=== PATIENT | female | born 1965 | race Caucasian/White ===

== ENCOUNTER 2018-10-05 10:47 | Emergency (ER) | payer BC, OTHER, SELFPAY ==
[2018-10-05 11:04] VITALS: BP 121/74; PULSE 69; RESP 18; TEMP 36.8; O2SAT 97
--- NOTE | 2018-10-05 12:32 | W.ED.GENAD ---
Discharge Plan Disposition Patient Disposition: HOME Condition: Stable Discharge Details Chief Complaint: GenMedical Clinical Impression: URI (upper respiratory infection), Laryngitis Primary Care Provider: Christin Jordan ED Provider: Jade Cain Home Meds and New Rx's Prescriptions: Continue coenzyme T24-[id number] E [Co Q-10 (with Vit E)] 1 EACH capsule 2 ea PO DAILY RF: 0 inulin [Fiber Gummies] 2.5 GM tablet,chewable 2 tab PO DAILY RF: 0 vitamin E acetate 200 UNIT capsule 200 unit PO DAILY RF: 0 black cohosh 540 MG capsule 540 mg PO DAILY RF: 0 niacinamide [Niacin (niacinamide)] 500 MG tablet 1 cap PO DAILY RF: 0 Multivitamin Gummy 1 tab.chew PO RF: 0 Turmeric Root Extract [Turmeric] 538 MG capsule 500 mg PO DAILY RF: 0 Discharge Instructions Instructions: Laryngitis (ED), Upper Respiratory Infection (ED) Additional Instructions: Drink plenty of fluids and get plenty of rest. Rest your voice is much as possible. Take glsu-rld-bstqgdg cough and cold medicine, Tylenol, Motrin as needed and directed. You can also drink hot tea with lemon, gargle with salt water, Chloraseptic spray or Sucrets. Follow-up with the primary care doctor in 1 week for reevaluation. Return immediately to the emergency department any worsening or new concerning symptoms. Discharge Data Discharge Date/Time-TO BE ENTERED AT DEPARTURE: 10/05/18 12:56 Discharge Physician: Jade Cain Medical Decision Making 53-year-old female who presents with URI symptoms of runny nose, cough, sore throat the past 9 days, lost voice days ago. No fever, drinking and eating well, no chest pain or shortness of breath. Vitals within normal limits. Patient appears nontoxic and in no acute distress. Airway intact, patient is speaking in full sentences but has faint hoarse voice consistent with laryngitis. Normal ENT exam. Lungs clear to auscultation. No lymphadenopathy. No submandibular swelling, no drooling. Discussed with patient that her symptoms, especially laryngitis are usually viral in nature and as she has no fever, eating and drinking well, and appears nontoxic, recommendations would be for fluids, resting her voice, plenty of rest, and hjzm-zcg-somfxcd cough and cold medicine in addition to Sucrets, Chloraseptic spray, hot water with lemon. Patient instructed to follow with primary care doctor in 1 week and return here with any worsening symptoms. HPI General Mode of arrival: ambulatory. Date/Time Provider Initiated Documentation: 10/05/18 11:45. Limitations to Documentation: no limitations. Information obtained by: patient. HPI Narrative: Patient is a 53-year-old female who presents to the ED with a complaint of runny nose, cough and sore throat for the past 9 days, and no voice for the past 2 days. Patient states her symptoms started with a runny nose and cough then progressed to sore throat. Patient has been taking ibuprofen for pain. She denies any fever, pain, shortness of breath or neck pain. Past medical history: None Surgical history: Tonsillectomy and adenoidectomy, right cyst/salpingectomy Surgical history: Occasional alcohol, denies tobacco or drugs Medications: None Allergies: Topamax, Lamisil PCP: Dr. Jordan Related Data Home Medications Medication Instructions Recorded Confirmed coenzyme W99-vcgbksn E [Co Q-10 2 ea PO DAILY 05/27/13 (with Vit E)] inulin [Fiber Gummies] 2 tab PO DAILY tab.chew 08/13/13 vitamin E acetate 200 unit PO DAILY 08/13/13 black cohosh 540 mg PO DAILY 08/19/14 Multivitamin Gummy 1 tab.chew PO 10/17/17 Turmeric Root Extract [Turmeric] 500 mg PO DAILY 10/17/17 niacinamide [Niacin (niacinamide)] 1 cap PO DAILY 10/17/17 Allergies Allergy/AdvReac Type Severity Reaction Status Date / Time terbinafine AdvReac Intermediate EXTREME Unverified 12/26/17 15:28 EXHAUSTION topiramate AdvReac Intermediate CONFUSION/D Unverified 12/26/17 15:28 EPRESSION General Stated Complaint: GenMedical JANI: 4 Review of Systems Review of Systems All systems reviewed & are unremarkable except as noted in HPI and below Constitutional Reports as per HPI, Denies chills and Denies fever(s) Eyes Denies blurry vision ENT Denies dizziness, Reports sore throat and Denies throat swelling Cardiovascular Denies chest pain and Denies dyspnea Respiratory Reports cough and Denies dyspnea Gastrointestinal Denies abdominal pain, Denies diarrhea and Denies vomiting Genitourinary Denies hematuria and Denies dysuria Musculoskeletal Denies back pain and Denies numbness Integumentary/Breasts Denies lesions and Denies rash Neurologic Denies dizziness and Denies numbness Allergic/Immunologic Denies throat swelling [facility] Family History Mother Essential hypertension Heart disease Hyperlipidemia Father Personal history of malignant neoplasm Myocardial infarction Cerebrovascular accident Sister No problems noted. Brother Hyperlipidemia Cerebrovascular accident Parkinsons Brother No problems noted. Brother Diabetes Essential hypertension Grandfather No problems noted. Grandfather Personal history of malignant neoplasm Grandmother Diabetes Heart disease Hyperlipidemia Grandmother Hyperlipidemia Social History Smoking/Tobacco Use Status: Never Surgical History Bilateral salpingectomy with oophorectomy Colonoscopy - MAC (07/19/13) Tonsillectomy and adenoidectomy Exam Const General: cooperative and healthy appearing Orientation: alert and awake HENAR Head: normal to inspection Ears: hearing grossly normal bilaterally, external ears normal and TM's normal bilaterally General nose exam: external nose normal Face and sinus: normal facial exam and sinuses nontender Mouth: oral mucosae normal Teeth and gingiva: dentition normal Throat: posterior oropharynx normal Eyes General: appearance normal, both eyes and all related structures Eyelids: eyelids normal Pupils: PERRL EOM: EOM intact bilaterally Neck Neck: normal visual inspection Lymphatic: no lymphadenopathy noted Chest Chest: normal inspection of the chest Resp Effort & Inspection: normal respiratory effort and able to speak in complete sentences Auscultation: clear to auscultation bilaterally Cardio Rate: regular rate Rhythm: regular rhythm GI Inspection: normal to inspection Palpation: soft, not firm, no guarding, no hepatosplenomegaly, no masses and nontender Auscultation: normal bowel sounds Skin General skin exam: no rashes or lesions noted Neuro General: alert and awake Cognition: normal cognition Speech: speech normal Gait: normal gait Motor: muscle tone normal throughout Sensory Exam: no sensory deficits noted Extrem General: normal to inspection, full ROM, normal capillary refill and no edema Psych Appearance: grossly normal Mental Status: mental status grossly normal Speech and Movement: speech and movement normal Affect: normal affect Thought Process: normal Course Vital Signs Temperature 98.2 F 10/05/18 11:04 Pulse 69 10/05/18 11:04 Respiratory Rate 18 10/05/18 11:04 Blood Pressure 121/74 10/05/18 11:04 Pulse Oximetry 97 10/05/18 11:04 Temperature 98.2 F 10/05/18 11:04 Temperature Source Temporal Artery Scan 10/05/18 11:04 Pulse 69 10/05/18 11:04 Respiratory Rate 18 10/05/18 11:04 Blood Pressure 121/74 10/05/18 11:04 Blood Pressure Position Sitting 10/05/18 11:04 Pulse Oximetry 97 10/05/18 11:04 Oxygen Delivery Method Room Air 10/05/18 11:04 Oxygen Flow Rate 0 10/05/18 11:04 Pain Level 0 10/05/18 11:04
--- NOTE | 2018-10-05 12:35 | ED.GENADUL_ITS ---
Discharge Plan Disposition Patient Disposition: HOME Condition: Stable Discharge Details Chief Complaint: GenMedical Clinical Impression: URI (upper respiratory infection), Laryngitis Primary Care Provider: Christin Jordan ED Provider: Jade Cain Home Meds and New Rx's Prescriptions: Continue coenzyme I97-yeohekf E [Co Q-10 (with Vit E)] 1 EACH capsule 2 ea PO DAILY RF: 0 inulin [Fiber Gummies] 2.5 GM tablet,chewable 2 tab PO DAILY RF: 0 vitamin E acetate 200 UNIT capsule 200 unit PO DAILY RF: 0 black cohosh 540 MG capsule 540 mg PO DAILY RF: 0 niacinamide [Niacin (niacinamide)] 500 MG tablet 1 cap PO DAILY RF: 0 Multivitamin Gummy 1 tab.chew PO RF: 0 Turmeric Root Extract [Turmeric] 538 MG capsule 500 mg PO DAILY RF: 0 Discharge Instructions Instructions: Laryngitis (ED), Upper Respiratory Infection (ED) Additional Instructions: Drink plenty of fluids and get plenty of rest. Rest your voice is much as possible. Take mnum-jtn-hsabpst cough and cold medicine, Tylenol, Motrin as needed and directed. You can also drink hot tea with lemon, gargle with salt water, Chloraseptic spray or Sucrets. Follow-up with the primary care doctor in 1 week for reevaluation. Return immediately to the emergency department any worsening or new concerning symptoms. Discharge Data Discharge Date/Time-TO BE ENTERED AT DEPARTURE: 10/05/18 12:56 Discharge Physician: Jade Cain Medical Decision Making 53-year-old female who presents with URI symptoms of runny nose, cough, sore throat the past 9 days, lost voice days ago. No fever, drinking and eating well , no chest pain or shortness of breath. Vitals within normal limits. Patient appears nontoxic and in no acute distress. Airway intact, patient is speaking in full sentences but has faint hoarse voice consistent with laryngitis. Normal ENT exam. Lungs clear to auscultation. No lymphadenopathy. No submandibular swelling, no drooling. Discussed with patient that her symptoms, especially laryngitis are usually viral in nature and as she has no fever, eating and drinking well, and appears nontoxic, recommendations would be for fluids, resting her voice, plenty of rest, and zidp-wly-byddbkf cough and cold medicine in addition to Sucrets, Chloraseptic spray, hot water with lemon. Patient instructed to follow with primary care doctor in 1 week and return here with any worsening symptoms. HPI General Mode of arrival: ambulatory . Date/Time Provider Initiated Documentation: 10/05/18 11:45 . Limitations to Documentation: no limitations . Information obtained by: patient . HPI Narrative: Patient is a 53-year-old female who presents to the ED with a complaint of runny nose, cough and sore throat for the past 9 days, and no voice for the past 2 days. Patient states her symptoms started with a runny nose and cough then progressed to sore throat. Patient has been taking ibuprofen for pain. She denies any fever, pain, shortness of breath or neck pain. Past medical history: None Surgical history: Tonsillectomy and adenoidectomy, right cyst/salpingectomy Surgical history: Occasional alcohol, denies tobacco or drugs Medications: None Allergies: Topamax, Lamisil PCP: Dr. Jordan Related Data Home Medications Medication Instructions Recorded Confirmed coenzyme D15-cvftsmv E [Co Q-10 2 ea PO DAILY 05/27/13 (with Vit E)] inulin [Fiber Gummies] 2 tab PO DAILY tab.chew 08/13/13 vitamin E acetate 200 unit PO DAILY 08/13/13 black cohosh 540 mg PO DAILY 08/19/14 Multivitamin Gummy 1 tab.chew PO 10/17/17 Turmeric Root Extract [Turmeric] 500 mg PO DAILY 10/17/17 niacinamide [Niacin (niacinamide)] 1 cap PO DAILY 10/17/17 Allergies Allergy/AdvReac Type Severity Reaction Status Date / Time terbinafine AdvReac Intermediate EXTREME Unverified 12/26/17 15:28 EXHAUSTION topiramate AdvReac Intermediate CONFUSION/D Unverified 12/26/17 15:28 EPRESSION General Stated Complaint: GenMedical JANI: 4 Review of Systems Review of Systems All systems reviewed & are unremarkable except as noted in HPI and below Constitutional Reports as per HPI, Denies chills and Denies fever(s) Eyes Denies blurry vision ENT Denies dizziness, Reports sore throat and Denies throat swelling Cardiovascular Denies chest pain and Denies dyspnea Respiratory Reports cough and Denies dyspnea Gastrointestinal Denies abdominal pain, Denies diarrhea and Denies vomiting Genitourinary Denies hematuria and Denies dysuria Musculoskeletal Denies back pain and Denies numbness Integumentary/Breasts Denies lesions and Denies rash Neurologic Denies dizziness and Denies numbness Allergic/Immunologic Denies throat swelling [facility] Family History Mother Essential hypertension Heart disease Hyperlipidemia Father Personal history of malignant neoplasm Myocardial infarction Cerebrovascular accident Sister No problems noted. Brother Hyperlipidemia Cerebrovascular accident Parkinsons Brother No problems noted. Brother Diabetes Essential hypertension Grandfather No problems noted. Grandfather Personal history of malignant neoplasm Grandmother Diabetes Heart disease Hyperlipidemia Grandmother Hyperlipidemia Social History Smoking/Tobacco Use Status: Never Surgical History Bilateral salpingectomy with oophorectomy Colonoscopy - MAC (07/19/13) Tonsillectomy and adenoidectomy Exam Const General: cooperative and healthy appearing Orientation: alert and awake HENWA Head: normal to inspection Ears: hearing grossly normal bilaterally, external ears normal and TM's normal bilaterally General nose exam: external nose normal Face and sinus: normal facial exam and sinuses nontender Mouth: oral mucosae normal Teeth and gingiva: dentition normal Throat: posterior oropharynx normal Eyes General: appearance normal, both eyes and all related structures Eyelids: eyelids normal Pupils: PERRL EOM: EOM intact bilaterally Neck Neck: normal visual inspection Lymphatic: no lymphadenopathy noted Chest Chest: normal inspection of the chest Resp Effort & Inspection: normal respiratory effort and able to speak in complete sentences Auscultation: clear to auscultation bilaterally Cardio Rate: regular rate Rhythm: regular rhythm GI Inspection: normal to inspection Palpation: soft, not firm, no guarding, no hepatosplenomegaly, no masses and nontender Auscultation: normal bowel sounds Skin General skin exam: no rashes or lesions noted Neuro General: alert and awake Cognition: normal cognition Speech: speech normal Gait: normal gait Motor: muscle tone normal throughout Sensory Exam: no sensory deficits noted Extrem General: normal to inspection, full ROM, normal capillary refill and no edema Psych Appearance: grossly normal Mental Status: mental status grossly normal Speech and Movement: speech and movement normal Affect: normal affect Thought Process: normal Course Vital Signs Temperature 98.2 F 10/05/18 11:04 Pulse 69 10/05/18 11:04 Respiratory Rate 18 10/05/18 11:04 Blood Pressure 121/74 10/05/18 11:04 Pulse Oximetry 97 10/05/18 11:04 Temperature 98.2 F 10/05/18 11:04 Temperature Source Temporal Artery Scan 10/05/18 11:04 Pulse 69 10/05/18 11:04 Respiratory Rate 18 10/05/18 11:04 Blood Pressure 121/74 10/05/18 11:04 Blood Pressure Position Sitting 10/05/18 11:04 Pulse Oximetry 97 10/05/18 11:04 Oxygen Delivery Method Room Air 10/05/18 11:04 Oxygen Flow Rate 0 10/05/18 11:04 Pain Level 0 10/05/18 11:04
== END 2018-10-05 12:56 | disposition home or self-care (01) ==
LOC: ER 12:55
PROVIDERS: Emergency Provider Physician Assistant; PCP Family Medicine
DX: J06.9 Acute upper respiratory infection, unspecified (principal); J04.0 Acute laryngitis
CPT/HCPCS: 99282

== ENCOUNTER 2018-11-05 11:15 | Outpatient (CLI) | payer BC, OTHER, SELFPAY ==
[2018-11-05 13:38] LABS: ALT 25 U/L (12-78); AST 16 U/L (15-37); Albumin 3.9 g/dL (3.4-5.0); Alkaline Phosphatase 72 U/L (46-116); Anion Gap 8.3 mmol/L (3-11); BUN 16 mg/dL (7-18); Bilirubin, Total 0.3 mg/dL (0.2-1.0); CO2 28.7 mmol/L (21.0-32.0); CREATININE 0.77 mg/dL (0.55-1.02); Calcium 9.5 mg/dL (8.5-10.1); Chloride 104 mmol/L (98-107); Cholesterol 287 mg/dL (50-200); Glucose 99 mg/dL (70-100); HDL Cholesterol 57 mg/dL (40-60); LDL CHOLESTEROL 195 mg/dL (<100); Potassium 4.5 mmol/L (3.5-5.1); Sodium 141 mmol/L (136-145); TSH (W/Ref FT4) 1.54 uIU/mL (0.358-3.74); Total Protein 7.2 g/dL (6.4-8.2); Triglyceride 283 mg/dL (30-150)
== END 2018-11-05 11:35 ==
PROVIDERS: PCP Family Medicine; Visit Provider Family Medicine
DX: Z00.00 Encounter for general adult medical examination without abnormal findings (principal); Z13.220 Encounter for screening for lipoid disorders; Z13.228 Encounter for screening for other metabolic disorders; Z13.29 Encounter for screening for other suspected endocrine disorder
CPT/HCPCS: 36415; 80053; 80061; 83721; 84443

== ENCOUNTER 2018-11-05 12:33 | Outpatient (REF) | payer BC, OTHER, SELFPAY ==
--- NOTE | 2018-11-05 10:30 | PAPFT_PTH ---
PATIENT: Elizabeth Gonzalez LOC: [facility] U#:[id number] AGE/SX: 53/F ROOM: RE11/05/[address]: Christin Jordan MD, DC : 1965 BED: DIS: 11/05/2018 SPEC #: [id number] RECD: 11/07/18 14:42 STATUS: RUI REQ #: [id number] LAURA: 11/05/18 10:[address]: Christin Jordan DEPT: [facility] Cytology RECD BY: Tala Tavares Tissues: 1 - CX/ENDOCX FOR PAP SMEARS Procedures: PAP THIN PREP/UVM Screening HPV DNA PROBE Comments: [id number]
== END 2018-11-05 12:53 ==
LOC: LBN 12:33
PROVIDERS: PCP Family Medicine; Visit Provider Family Medicine
DX: Z12.4 Encounter for screening for malignant neoplasm of cervix (principal); Z11.51 Encounter for screening for human papillomavirus (HPV)
CPT/HCPCS: 88142; 87624

== ENCOUNTER 2018-11-12 00:09 | Outpatient (CLI) | payer BC, OTHER, SELFPAY ==
--- NOTE | 2018-11-12 09:30 | DI.MAMMO_ITS ---
SYMPTOM/DIAGNOSIS: SCREENING, Z12.31 MAMMOGRAMS: Mammograms were interpreted according to the usual protocol including computer analysis with CAD system, tomosynthesis and C view imaging. Comparison is made with exams from [id number]. The breasts are composed of scattered fibroglandular densities. Breast density, Category C. No suspicious masses or suspicious microcalcifications are seen. There has been no significant change. IMPRESSION: Category 1B, negative mammogram. Yearly screening mammography is recommended. [facility] ASSESSMENT OF FINDINGS: Negative. Category 1. Patient will receive a letter notifying them of these results. BI-RADS category B. There are scattered areas of fibroglandular density.
== END 2018-11-12 00:29 ==
PROVIDERS: PCP Family Medicine; Visit Provider Family Medicine
DX: Z12.31 Encounter for screening mammogram for malignant neoplasm of breast (principal)
CPT/HCPCS: 77063; 77067

== ENCOUNTER 2019-11-07 11:40 | Outpatient (REF) | payer BC, OTHER, SELFPAY ==
--- NOTE | 2019-11-07 10:00 | PAPFT_PTH ---
PATIENT: Elizabeth Gonzalez LOC: [facility] U#:[id number] AGE/SX: 54/F ROOM: RE11/07/[address]: Christin Jordan MD, DC : 1965 BED: DIS: 11/07/2019 SPEC #: [id number] RECD: 11/08/19 12:51 STATUS: RUI REQ #: [id number] LAURA: 11/07/19 10:[address]: Christin Jordan DEPT: [facility] Cytology RECD BY: Eileen Solomon Tissues: 1 - CX/ENDOCX FOR PAP SMEARS Procedures: PAP THIN PREP/UVM Screening HPV DNA PROBE Comments: [id number]
== END 2019-11-07 12:00 ==
LOC: LBN 11:40
PROVIDERS: PCP Family Medicine; Visit Provider Family Medicine
DX: Z12.4 Encounter for screening for malignant neoplasm of cervix (principal); Z11.51 Encounter for screening for human papillomavirus (HPV)
CPT/HCPCS: 88142; 87624

== ENCOUNTER 2019-11-26 13:48 | Outpatient (CLI) | payer BC, OTHER, SELFPAY ==
--- NOTE | 2019-12-06 15:47 | DI.MAMMO_ITS ---
EXAM: MG MAMMO SCREENING CLINICAL HISTORY: screening, Z12.39. TECHNIQUE: Full field digital CC and MLO mammographic images were obtained with 3D tomosynthesis and utilizing computer aided detection (CAD). COMPARISON: . 2009 to 2017 FINDINGS: Breast Density - Category B - Scattered areas of fibroglandular density Masses/Architectural Distortion: None seen. Microcalcifications: No suspicious pleomorphic-type calcifications are seen. Skin Thickening/Nipple Retraction: None. Axilla: Unremarkable. IMPRESSION: 1. BI-RADS category 1, negative. No significant interval change with no specific features of maligna ncy noted. 2. Unless there is more urgent need, screening mammography is recommended, as per [employer] guidelines. A negative radiographic report should not delay biopsy if a dominant or clinically suspicious mass is present. Up to ten percent of cancers are not identified on mammography. A negative report may reinforce clinical impression. Adenosis and dense breasts may obscure an underlying neoplasm. False positive reports average 6 to 10%. Patient will receive a letter notifying them of these results.
== END 2019-11-26 14:08 ==
PROVIDERS: PCP Family Medicine; Visit Provider Family Medicine
DX: Z12.31 Encounter for screening mammogram for malignant neoplasm of breast (principal)
CPT/HCPCS: 77063; 77067

== ENCOUNTER 2021-07-06 08:23 | Day surgery (SDC) | payer BC, OTHER, SELFPAY ==
--- NOTE | 2021-07-06 07:31 | PDOC.DSDIS_ITS ---
Discharge Plan Disposition Patient Disposition: HOME Condition: Stable Discharge Details Reason For Visit: Right ECTR Attending Provider: Patrick Putnam Primary Care Provider: Christin Jordan Home Meds and New Rx's Prescriptions: New ibuprofen 600 mg tablet 600 mg PO TID Qty: 30 RF: 0 acetaminophen [Tylenol Extra Strength] 500 mg tablet 500 mg PO Q6H PRNQty: 30 RF: 0 hydrocodone-acetaminophen 5-325 mg tablet 1 tab PO Q6H PRNQty: 3 RF: 0 Continued vitamin B complex tablet 1 tab PO DAILY RF: 0 black cohosh 540 mg capsule 540 mg PO DAILY RF: 0 cholecalciferol (vitamin D3) 25 mcg (1,000 unit) capsule 25 mcg PO DAILY RF: 0 multivit with min-folic acid 150 mcg tablet,chewable 2 tab PO DAILY RF: 0 coenzyme X35-hsoyccd E [Co Q-10 (with Vit E)] 100-5 mg-unit capsule 1 cap PO DAILY RF: 0 vitamin E acetate 200 unit capsule 450 unit PO DAILY RF: 0 Discharge Instructions Stand Alone Forms: [place] Tunnel Release Referrals: Patrick Putnam MD [ [facility]YSICIAN] - Activity:: Activity as Tolerated Remove Dressings/Wound Care:: 72 hours Shower/Bathe:: 72 hours Diet:: As Tolerated Discharge Orders Discharge Orders: Discharge Order (Routine); Ordered 07/06/21 Ordered By: Aisha Mclain DS: Diagnosis Discharge Diagnosis (1) Carpal tunnel syndrome of right wrist: Status: Acute
[2021-07-06 08:37] VITALS: BP 114/66; PULSE 75; RESP 16; TEMP 36.2; O2SAT 99
[2021-07-06] MEDS: Lactated Ringers 1,000 ML 80 ML IV (09:15)
--- NOTE | 2021-07-06 09:15 | W.ANESPRE ---
General Info Date of Service Date Performed: 07/06/21 Height: 5 ft 4 in Weight: 87.09 kg Body Mass Index (BMI): 32.9 Surgical Procedure: Operation Date: 07/06/21 09:40 Proposed Procedures Side Surgeon p (R) ECTR Right Patrick Putnam MD Meds Allergies and Home Medications Allergies Allergy/AdvReac Type Severity Reaction Status Date / Time terbinafine AdvReac Intermediate EXTREME Unverified 07/06/21 08:52 EXHAUSTION topiramate AdvReac Intermediate CONFUSION/D Unverified 07/06/21 08:52 EPRESSION Home Medication Medication Instructions Recorded coenzyme C01-efuliqi E 100 mg-5 1 cap PO DAILY cap 11/05/18 unit capsule vitamin B complex 1 tab PO DAILY 11/05/18 black cohosh 540 mg capsule 540 mg PO DAILY cap 11/09/20 cholecalciferol (vitamin D3) 25 25 mcg PO DAILY 11/09/20 mcg (1,000 unit) capsule multivitamin with minerals-folic 2 tab PO DAILY tab 11/09/20 acid 150 mcg chewable tablet vitamin E acetate 134 mg (200 450 unit PO DAILY cap 11/09/20 unit) capsule acetaminophen [Tylenol Extra 500 mg PO Q6H PRN #30 tab 07/06/21 Strength] hydrocodone-acetaminophen 1 tab PO Q6H PRN #3 tab 07/06/21 ibuprofen 600 mg PO TID #30 tab 07/06/21 Current Visit Medications: Current Medications Generic Name Dose Route Start Last Admin Trade Name Freq PRN Reason Stop Dose Admin Acetaminophen 650 mg 07/06/21 07:29 Acetaminophen 325 Mg Tab PO Q4H PRN PRN Hydrocodone Bitart/Acetaminophen 0 tab 07/06/21 07:29 Hydrocodone 5/Acetaminophen 325 Tab PO Q3H PRN PRN Pain Ringer's Solution 1,000 mls @ 80 mls/hr 07/06/21 06:00 IV 08/04/21 23:59 INFUSION JAYLEN Cefazolin Sodium 2,000 mg/ 100 mls @ 200 mls/hr 07/06/21 06:00 Sodium Chloride IVPB 07/06/21 23:59 PREOP JAYLEN Ondansetron HCl 4 mg/ Sodium 52 mls @ 200 mls/hr 07/06/21 07:29 Chloride IVPB Q6H PRN PRN IV Miscellaneous Supplies 1 each 07/06/21 06:00 Iv Access IV 08/04/21 23:59 DIRECTED JAYLEN Sodium Chloride 0 ml 07/06/21 06:00 Normal Saline Flush 10 Ml Syr IV 08/04/21 23:59 PRN PRN Sodium Chloride 0 ml 07/06/21 06:00 Normal Saline 10 Ml Vial IJ 08/04/21 23:59 DIRECTED PRN Sterile Water 0 ml 07/06/21 06:00 Water,Injection,Sterile 10 Ml Vial IJ 08/04/21 23:59 DIRECTED PRN PFSH Active Problems Active Problems: Problem Status Onset Code Right lateral epicondylitis M77.11 Carpal tunnel syndrome of right wrist G56.01 Annual physical exam Z00.00 Diverticular disease 05/31/13 K57.90 Hearing difficulty of left ear 12/17/15 H91.92 Hyperlipidemia E78.5 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 Migraine G43.909 Onychomycosis B35.1 Medical History Medical History Abdominal pain 05/27/13 Abnormal mammogram, unspecified 10/12/032003-left medial breast density at 7 o'clock; 2004-right inferior breast nodularity Annual physical exam (10/05/15) Chronic left shoulder pain 05/06/16 Dermoid cyst of ovary 08/13/13 Diverticular disease (05/31/13) Ear congestion 12/17/15 left Excessive cerumen in right ear canal 12/08/15 Hearing difficulty of left ear (12/17/15) 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 hpv neg Hyperlipidemia Iliotibial band syndrome 08/19/14 Migraine Neck pain xrays normal Onychomycosis Right cervical radiculopathy 10/05/15 Right lateral epicondylitis Sigmoid diverticulosis Ulnar nerve injury ULNER NERVE IRRITATION Surgical History Surgical History Bilateral salpingectomy with oophorectomy left, secondary to dermoid cyst Colonoscopy - MAC (07/19/13) SIGMOID DIVERTICULOSIS S/P BSO (bilateral salpingo-oophorectomy) left;secondary to dermoid cyst S/P tonsillectomy and adenoidectomy Tonsillectomy and adenoidectomy Tobacco Smoking/Tobacco Use Status: Never Passive smoking exposure: Yes Alcohol Alcohol Intake: current Alcohol intake frequency: holidays/special occasions only Alcohol type: wine Substance Use Substance use: Never Substance use type: does not use Vital Signs and Lab Results Vital Signs Most Recent Vital Signs in EMR: Most Recent Vital Signs Temp Pulse Resp BP Pulse Ox 36.2 C L 75 16 114/66 99 07/06/21 08:37 07/06/21 08:37 07/06/21 08:37 07/06/21 08:37 07/06/21 08:37 Point of Care Results Point of Care Results: POC- Test(urine) Negative 07/06/21 08:55 Lab Results Blood Type / Crossmatch: No Data to Display Complete Blood Count: No Data to Display Complete Metabolic Panel: No Data to Display Liver Function Panel: No Data to Display Coagulation Panel: No Data to Display Cardiac Panel: No Data to Display Arterial Blood Gas: No Data to Display Venous Blood Gas: No Data to Display Pancreas Panel: No Data to Display Thyroid Panel: No Data to Display Infectious Disease: No Data to Display Blood Cultures: No Data to Display Toxicology Panel: No Data to Display Anesthesia Assessment and Plan Anesthesia History Personal History: No History of Anesthesia Complications Family History: No Family History of Anesthesia Complications Exercise Tolerance Exercise Tolerance: Metabolic Equivalents>4 Pertinent Negatives Pertinent Negatives: No Symptoms of GERD, No Major Cardiovascular Symptoms or Complaints and No Major Pulmonary Symptoms or Complaints Cardiac & Pulmonary Exam Cardiac Exam: Normal S1/S2 Heart Sounds Pulmonary Exam: Clear Bilateral Breath Sounds Airway Exam Known Difficult Airway: No Mallampati Class: 2 Mouth Opening: Normal (> 3cm) Thyromental Distance: Greater than 3 cm Neck Range of Motion: Full ROM Neck Circumference: Normal Teeth Condition: Normal Dentition ASA Classification ASA Score: ASA 2 Emergency Case?: No NPO Status NPO Status: NPO Clears >2 hours, Solids >8 hours Anesthesia Plan Resuscitation Status: Full Code Anesthesia Technique: General Anesthesia Airway Planned: Natural Airway Monitors Used: Standard Monitors
[2021-07-06 09:17] VITALS: BMI 32.9
[2021-07-06] MEDS: ceFAZolin 2,000 MG in Normal Saline 100 ML 200 MG IVPB (09:30)
[2021-07-06] MEDS: Sodium Bicarbonate 50 MEQ/50 ML VIAL (09:46)
[2021-07-06 09:58] VITALS: BP 117/69; PULSE 64; RESP 16; TEMP 36.1; O2SAT 94
--- NOTE | 2021-07-06 10:02 | W.PM.OP ---
Date of service: 07/06/21 Time of Service: 10:02 Operative Note Operative Note DATE OF PROCEDURE: 07/06/21 PRE-OP DIAGNOSIS: Right Carpal Tunnel Syndrome POST-OP DIAGNOSIS: same PROCEDURE: Right Endoscopic Carpal Tunnel Release SURGEON: Patrick Putnam Refer to Anesthesia Record ESTIMATED BLOOD LOSS: 0 PATHOLOGY: none sent TOURNIQUET TIME: 4 COMPLICATIONS: None Patient was transported to: same day Patient's condition: stable Indications: I have seen Elizabeth in clinic for symptoms of carpal tunnel syndrome. The numbness, tingling, and pain limited function. Clinical exam findings with nerve conduction tests confirmed the diagnosis of carpal tunnel syndrome. Nonoperative measures such as bracing, time, activity modifications had been tried but disability and pain persisted. I discussed carpal tunnel release with the patient. I reviewed the risks of the procedure to include, but not limited to, bleeding, infection, pain, stiffness, incomplete release, damage to nerves or vessels, persistent numbness, recurrence. Despite these risks, the patient elected to proceed. Findings: There was tightened carpal tunnel. This was dilated and released successfully with the endoscopic with increased space within the tunnel. The antebrachial fascia was released proximally freeing the median nerve at the wrist. Procedure Description: Elizabeth was greeted in the preoperative holding area where the correct side was identified and marked. The consent was reviewed with the patient and signed. The history and physical was updated. All questions were answered. She was taken back to the operating room. The patient was placed into the supine position on the operating room table with the right arm on an arm board. A nonsterile tourniquet was placed high onto the arm. All bony prominences were well padded. Prophylactic antibiotics in the form of Cefazolin were administered. The right arm was then prepped with Chloraprep and draped in a standard fashion with stockinette and extremity drape. A timeout to confirm correct identity, side and site, procedure, allergies, anesthesia, and medical concerns was performed. The surgical site was marked in the volar wrist creases in line with the radial border of the fourth ray. This area was anesthetized with approximately 6cc of 1% Lidocaine. The limb was then exsanguinated with an Esmarch. The skin was incised with a 15 blade, approximately 1cm. The skin only was cut and the deeper tissue was dissected bluntly with a tenotomy scissor, avoiding passing nerve and venous structures. The fascia was penetrated and opened bluntly. A two-prong skin hook was placed under this proximal fascial edge. A series of hamate finders were used to identify and dilate the carpal tunnel. Synovial elevator was used to free synovial attachments to the underside of the transverse carpal ligament. My thumb was kept in the palm to arden the distal extent of the carpal tunnel and correctly position the hand. The [employer]aire endoscope was inserted without difficulty and without resistance. Excellent visualization showed horizontally running fibers of the transverse carpal ligament (TCL). The distal extent of the TCL was visualized and the end of the scope palpated with the thumb. The blade was elevated and withdrawn from distal to proximal. The TCL was split into two flaps. The endoscope was reinserted to confirm complete release and any remnant ligament was incised. The scope was withdrawn and the proximal aspect of the carpal tunnel was grossly inspected and appeared release with the median nerve visible. The antebrachial fascia at the level of the wrist was then freed from the overlying skin and then the underlying median nerve with blunt dissection. This was transected longitudinally for about 3cm proximal to the wrist incision. The wound was then irrigated with easy flow of irrigant distally and proximally. The incision was closed with a single 4-0 Nylon suture. The wound was dressed with Xeroform, Gauze, Kerlix and Tomas. The tourniquet was deflated with the initial dressing and held with some pressure. Blood flow returned easily to all digits with capillary refill less than 2 seconds. The patient tolerated the procedure well and was returned to the Same Day Surgery area in a stable condition suffering no known complication.
[2021-07-06 10:32] VITALS: BP 101/59; PULSE 70; RESP 16; TEMP 36.5; O2SAT 96
--- NOTE | 2021-07-06 11:13 | W.ANESPOSTOP ---
Postoperative Evaluation Date, Time and Location Date Performed: 07/06/21 Time Performed: 10:30 Patient Location: Day Surgery Unit Vital Signs Most Recent Imported Vital Signs: Most Recent Vital Signs Temp Pulse Resp BP Pulse Ox 36.5 C 70 16 101/59 L 96 07/06/21 10:32 07/06/21 10:32 07/06/21 10:32 07/06/21 10:32 07/06/21 10:32 Pain Score Most Recent Pain Score: Most Recent Pain Score Pain Level 0 07/06/21 10:32 Assessment Mental Status: Awake (Alert & Oriented to Patient Baseline) Airway and Respiratory Function: Patent airway with normal (patient baseline) respiratory exam Cardiovascular Function: Hemodynamically Stable Hydration Status: Adequately Hydrated Nausea & Vomiting: No Nausea or Vomiting Pain: Pt. Denies Any Pain Peripheral Nerve Block: Patient did not receive a nerve block
== END 2021-07-06 10:57 | disposition home or self-care (01) ==
LOC: SUR 08:23
PROVIDERS: PCP Family Medicine; Visit Provider Student in an Organized Health Care Education/Training Program
PROC: 01N54ZZ Release Median Nerve, Percutaneous Endoscopic Approach (ICD-10-PCS; CPT 29848; principal; 2021-07-06 09:30)
DX: G56.01 Carpal tunnel syndrome, right upper limb (principal); M77.11 Lateral epicondylitis, right elbow
CPT/HCPCS: 29848; J0690; J1885; J2001; J3010

== ENCOUNTER 2021-09-16 21:14 | Outpatient (REF) | payer BC, OTHER, SELFPAY ==
[2021-09-18 09:25] LABS: COVID-19 RT-PCR UVMMC Result Negative (Negative)
== END 2021-09-16 21:15 | disposition home or self-care (01) ==
LOC: LBN 21:14
PROVIDERS: PCP Family Medicine; Visit Provider Nurse Practitioner Family
DX: Z20.822 Contact with and (suspected) exposure to COVID-19 (principal)
CPT/HCPCS: U0003

== ENCOUNTER 2021-09-17 03:33 | Outpatient (CLI) | payer BC, OTHER, SELFPAY ==
[2021-09-17 12:51] LABS: HCT 43.6 % (36.0-46.0); HGB 14.1 g/dL (11.2-15.7); MCHC 32.3 % (32.0-36.0); MCV 92.8 fL (80-95); MPV 10.8 fL (8.0-11.0); Platelet Count 239 10^3/uL (130-400); RDW 13.2 % (11.7-14.6); RDW-SD 44.7 fL
[2021-09-17 13:13] LABS: Hemoglobin A1C 5.2 % (<5.7)
[2021-09-17 13:29] LABS: ALT 29 U/L (14-59); AST 16 U/L (15-37); Albumin 4.1 g/dL (3.4-5.0); Alkaline Phosphatase 67 U/L (46-116); Anion Gap 10.8 mmol/L (3-11); BUN 11 mg/dL (7-18); Bilirubin, Total 0.3 mg/dL (0.2-1.0); CO2 27.2 mmol/L (21.0-32.0); Calcium 9.4 mg/dL (8.5-10.1); Calculated LDL 229 mg/dL (<100); Chloride 106 mmol/L (98-107); Cholesterol 319 mg/dL (<200); Estimated GFR 57.35 (mL/min/1.73m2); Glucose 106 mg/dL (74-106); HDL Cholesterol 62 mg/dL (40-60); Potassium 4.1 mmol/L (3.5-5.1); Sodium 144 mmol/L (136-145); TSH 0.51 uIU/mL (0.36-3.74); Total Protein 7.1 g/dL (6.4-8.2); Triglyceride 142 mg/dL (<150)
== END 2021-09-17 03:34 | disposition home or self-care (01) ==
LOC: LOS 03:33
PROVIDERS: PCP Family Medicine; Visit Provider Nurse Practitioner Family
DX: E78.5 Hyperlipidemia, unspecified (principal); Z13.1 Encounter for screening for diabetes mellitus; Z13.29 Encounter for screening for other suspected endocrine disorder; R11.0 Nausea
CPT/HCPCS: 36415; 80053; 80061; 85027; 83036; 84443

== ENCOUNTER 2022-01-04 01:31 | Outpatient (CLI) | payer BC, OTHER, SELFPAY ==
--- NOTE | 2022-01-04 07:15 | DI.MAMMO_ITS ---
Exam(s) MAMMO SCREENING EXAM: MAMMO SCREENING CLINICAL HISTORY: screening,z12.39 TECHNIQUE: Mammograms were interpreted according to the usual protocol including computer analysis w [employer] CAD system, tomosynthesis and C-view imaging. COMPARISON: FINDINGS: The breasts are of moderate density with fairly symmetrical distribution of fibroglandular tissue. N o dominant mass or clumped microcalcification is identified in either breast. The current examinatio n is compared with previous examinations including November 2019 and there has been no gross interval change in appearance in comparison with the prior studies. IMPRESSION: No specific evidence of malignancy at this time. Routine screening examinations are suggested at yea rly intervals in this age group according to the ACS ACR guidelines. BI-RADS Category 1 - Negative Breast Density - Category B - Scattered areas of fibroglandular density
== END 2022-01-04 01:51 ==
PROVIDERS: PCP Family Medicine; Visit Provider Family Medicine
DX: Z12.31 Encounter for screening mammogram for malignant neoplasm of breast (principal)
CPT/HCPCS: 77063; 77067

== ENCOUNTER → 2022-07-11 01:50 | Outpatient (CLI) | payer BC, OTHER, SELFPAY ==
--- NOTE | 2022-07-11 08:00 | ETT_ITS ---
APPROVED REPORT Exam: Exercise Treadmill Patient Location: Out-Patient Room/Bed: Stress Nurse: Fadumo Ballard RN Ordering Provider:IRVIN NEVAREZ, Contact Number: BMI: 28.83 Baseline Rhythm: Sinus Arrhythmia Indications: CHEST PAIN Medical History Medical History: HLD, Chest pain, Diverticular disease, Recent increased emotional stress Cardiac Medications: None Allergies: Terbinafine, Topiramate Cardiac Risk Factors: FHX of CAD, Hyperlipidemia Previous Cardiac Procedures: None Pretest Chest Pain Characteristics: None Exercise History: Indeterminate Physical Disabilities: None Lung Sounds: Clear to auscultation Heart Sounds: Regular Stress Test Details Test: Exercise stress testing was performed using a Lucas protocol. Rest Stress HR Resting HR Supine: 65 bpm Max Heart Rate (APMHR): 163 bpm Resting HR Standin bpm Target HR (85% APMHR): 138 bpm Max HR Achieved: 176 bpm % of APMHR: 107 Recovery HR: 98 bpm HR response to stress: Normal HR response to stress BP Resting BP Supine: 114/84 mmHg Resting BP Standin/88 mmHg Max BP: 154/98 mmHg Recovery BP: 112/72 mmHg BP response to stress: Normal blood pressure response to stress. ECG Resting ECG: Sinus Arrhythmia Ectopy: None Stress ECG: Sinus Tachycardia ST Change: No significant ST segment changes noted Arrhythmia: occasional PVC in the last stage of exercise Recovery ECG: Sinus Rhythm Recovery ST Change: No significant ST segment changes noted Recovery Arrhythmia: None Clinical Reason for Termination: Fatigue Stress Symptoms: Chest pain Exercise duration: 9 min00 sec Highest Stage Reached: Stage 3: 3.4 mph at 14% grade. Exercise capacity: 10.16 METs Cantu Treadmill Score: 5.0 Rate Pressure Product: 29234 Stress ECG Conclusion 1. Resting electrocardiogram was within normal limits 2. Patient exercised on the Lucas protocol and completed a workload of 10.16 METS 3. Normal heart rate and blood pressure response to exercise. Peak heart rate was greater than 100% of predicted for age 4. There was no electrocardiographic evidence of myocardial ischemia 5. There were no significant dysrhythmias Cantu Treadmill Score is 5.0 which is Low risk. Stress Test Summary STAGE Time (mins) Speed (mph) Grade (%) HR BP SpO2 SYMPTOMS METS Supine 65 114/84 97% RA Standing 114 112/88 1 3 1.7 10 135 132/90 4.5 2 6 2.5 12 146 142/92 7 3 9 3.4 14 174 154/98 97% 5/10 squeezing left sternal chest pain, nonradiating 10 1 min recovery 150 142/84 98% 3/10 chest pain 3 min recovery 107 126/78 1/10 chest pain 6 min recovery 98 112/72 chest pain resolved by 3:46 into recovery
== END ==
PROVIDERS: PCP Family Medicine; Visit Provider Family Medicine
DX: R07.9 Chest pain, unspecified (principal); E78.5 Hyperlipidemia, unspecified
CPT/HCPCS: 93017

== ENCOUNTER 2022-08-02 07:41 | Emergency (ER) | payer BC, OTHER, SELFPAY ==
[2022-08-02 08:08] VITALS: BP 134/71; PULSE 100; RESP 18; TEMP 36.5; O2SAT 99
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
== END 2022-08-02 08:39 | disposition home or self-care (01) ==
PROVIDERS: Emergency Provider Physician Assistant; PCP Family Medicine
DX: S02.5XXA Fracture of tooth (traumatic), initial encounter for closed fracture (principal); Y04.2XXA Assault by strike against or bumped into by another person, initial encounter; W22.8XXA Striking against or struck by other objects, initial encounter
CPT/HCPCS: 99283; 99284

== ENCOUNTER 2022-08-31 13:03 | Outpatient (REF) | payer BC, OTHER, SELFPAY | END 2022-08-31 13:04 | disposition home or self-care (01) | LOC: LBN 13:03 | PROVIDERS: PCP Family Medicine; Visit Provider Physician Assistant Medical | DX: J02.9 Acute pharyngitis, unspecified (principal) | CPT/HCPCS: 87070 ==

== ENCOUNTER 2023-01-16 10:58 | Outpatient (REF) | payer BC, OTHER, SELFPAY ==
--- NOTE | 2023-01-16 09:30 | PAPFT_PTH ---
PATIENT: Elizabeth Gonzalez LOC: [facility]#:[id number] AGE/SX: 57/F ROOM: RE01/16/[address]: Christin Jordan MD, DC : 1965 BED: DIS: 01/16/2023 SPEC #: [id number] RECD: 01/16/23 13:11 STATUS: RUI REOrestes #: [id number] LAURA: 01/16/23 09:[address]: Christin Jordan DEPT: [facility] Cytology RECD BY: Eileen Solomon Tissues: 1 - CX/ENDOCX FOR PAP SMEARS Procedures: PAP THIN PREP/UVM Screening HPV DNA PROBE Comments: [id number]
== END 2023-01-16 10:59 | disposition home or self-care (01) ==
LOC: LBN 10:58
PROVIDERS: PCP Family Medicine; Visit Provider Family Medicine
DX: Z12.4 Encounter for screening for malignant neoplasm of cervix (principal); Z11.51 Encounter for screening for human papillomavirus (HPV)
CPT/HCPCS: 88142; 87624

== ENCOUNTER 2023-03-16 00:37 | Outpatient (CLI) | payer BC, OTHER, SELFPAY ==
--- NOTE | 2023-03-16 07:00 | DI.DEXA_ITS ---
Exam(s) XR DEXA BONE DENSITY W/WO LIA EXAM: XR DEXA BONE DENSITY W/WO LIA CLINICAL HISTORY: screening for osteoporosis in postmenopausal woman,z78.0 TECHNIQUE: COMPARISON: No exams were available for comparison FINDINGS: Lateral Spine Image: Unremarkable. No compression deformities identified. Left hip: Total T-Score: -1.4 Total Z-Score: -0.6 T- and Z-scores: Findings consistent with osteopenia. Lumbar Spine: Total T-Score: -0.2 Total Z-Score: 1.1 T- and Z-scores: Within normal limits. IMPRESSION: No evidence of osteoporosis.
--- NOTE | 2023-03-16 08:21 | DI.MAMMO_ITS ---
Exam(s) MAMMO SCREENING EXAM: MAMMO SCREENING CLINICAL HISTORY: screening,z12.39 TECHNIQUE: Bilateral full field digital CC and MLO mammographic images were obtained with 3D tomosyn thesis and utilizing computer aided detection (CAD). COMPARISON: Available for comparison. FINDINGS: Masses/Architectural Distortion: None seen. Microcalcifications: No suspicious pleomorphic-type are seen. Skin Thickening/Nipple Retraction: None. IMPRESSION: 1. No significant interval change with no specific features of malignancy noted. 2. Unless there is more urgent need, screening mammography is recommended, as per [employer] guidelines. BI-RADS Category 1 - Negative Breast Density - Category B - Scattered areas of fibroglandular density Breast density category C or D implies that the patient has dense breast tissue. Dense breast tissue is very common and is not abnormal but dense breast tissue can make it harder to find cancer on a ma mmogram. Also, dense breast tissue may increase their breast cancer risk. This information about the result of the mammogram report was provided to the patient to raise their awareness. Use this report when you speak with the patient about their risks for breast cancer, which includes their family hist ory. At that time, you may recommend for more screening tests (Ultrasound or MRI) as they might be us eful based on their risk. A negative radiographic report should not delay biopsy if a dominant or clinically suspicious mass is present. Up to ten percent of cancers are not identified on mammography. A negative report may reinforce clinical impression. Adenosis and dense breasts may obscure an underlying neoplasm. False positive reports average 6 to 10%. Patient will receive a letter notifying them of these results.
== END 2023-03-16 00:57 ==
LOC: DI 00:37
PROVIDERS: PCP Family Medicine; Visit Provider Family Medicine
DX: Z78.0 Asymptomatic menopausal state (principal); Z12.31 Encounter for screening mammogram for malignant neoplasm of breast
CPT/HCPCS: 77063; 77067; 77080

== ENCOUNTER 2023-09-01 07:10 | Day surgery (SDC) | payer BC, OTHER, SELFPAY ==
--- NOTE | 2023-08-31 20:17 | COLE_ITS ---
Date of service: 09/01/23 Time of Service: 08:53 Colonoscopy Report Date of procedure: 09/01/23 Pre-op diagnosis general: CRC screening/hx of diverticula Post-op diagnosis procedure note: other (Diverticula and polyps) Surgeon: Lizett Plata Anesthesia Type: General:No Airway Estimated blood loss (mL): 1 Pathology: other Complications: None Disposition: same day Prep: Miralax/Dulcolax Retraction Time: 10 Procedure Description: After informed consent was obtained the patient was taken to the procedure room and placed in a left decubitous position. Monitors were applied and a time out was done. The patients name, date of , procedure, allergies to medications and metal in their body was reviewed. The patient was then sedated. Once sedated and comfortable a rectal exam was done. External exam was normal. I nternal exam revealed a normal sphincter tone and no palpable masses. The scope was then introduced and retrofelexed. No internal hemorrhoids were identified. The scope was then advanced to the cecum without difficulty. The TI and appendiceal orifice were identified. The prep was BBPS 3 in all segments for a total of 9. The scope was then slowly retracted over 10 minutes back into the rectum. She has multiple [place] diverticula/moderate disease, confined to the sigmoid colon. There are no active bleeding or infection. She has a polyp at 80 cm that we removed with a cold biting forcep. It is a flat 0.5 cm polyp. All specimen is retrieved and no bleeding is noted. The mucosa is otherwise pink and healthy with a normal vascular pattern. The scope was removed and the patient was woken up and taken back to Same day surgery in stable condition. The patient tolerated the procedure well and there were no immediate complications. Follow up: The patient should follow up in 7 years unless they develop changes in bowel habits or other new gastrointestinal complaints.
--- NOTE | 2023-08-31 20:22 | PDOC.DSDIS_ITS ---
Date of service: 09/01/23 Time of Service: 08:55 Discharge Plan Disposition Patient Disposition: Home Condition: Good Discharge Details Reason For Visit: Colon scope Attending Provider: Lizett Plata Primary Care Provider: Christin Jordan Home Meds and New Rx's Prescriptions: No Action bisacodyl 5 mg tablet,delayed release (DR/EC) 5 mg PO ONCE Qty: 4 0RF Rx Instructions: Per Colonoscopy bowel prep instructions polyethylene glycol 3350 17 gram/dose powder 238 g PO ONCE Qty: 238 0RF Rx Instructions: For Colonoscopy bowel prep, as directed by office acetaminophen [Tylenol Extra Strength] 500 mg tablet 500 mg PO Q6H PRNQty: 30 0RF Discharge Instructions Additional Instructions: [facility] Colonoscopy Post- Op Instructions Instructions for Everyone who is given Anesthesia: For your safety, please do the following for the next twenty-four (24) hours: *Do Not operate a motor vehicle (car, truck, motorcycle, etc.) *Do Not drink alcoholic beverages or use any recreational drugs for the first 24 hours or while taking pain medications. The medications in your body may have a reaction that can be dangerous. *Do Not make any important decisions or sign any important papers. Findings: Diverticular disease. Make sure you are moving your bowels on a regular basis and not straining to go to the bathroom. If you find that you are having issues with constipation or straining, it is recommended you start a fiber supplement such as Metamucil. -X1 small polyp Follow up: My office will send a letter in 2 to 3 weeks time with the results of the pathology and when we want you to repeat the colonoscopy. 1. No lifting over 20 pounds or strenuous activity for the first 24 hours after your procedure. After 24 hours there are no restrictions on your activity but you may feel fatigued for a few days. 2. After you arrive home you may have a light meal and return to your normal diet as you can tolerate it without feeling sick to your stomach. 3. You may have a bloated, gaseous feeling in your belly (abdomen) after a colonoscopy. Passing gas and belching will help. Walking or lying down on your left side with your knees flexed may relieve the discomfort. Call the office at [phone] (Office) or [phone] (Hospital) right away if you notice any of the following: a.Vomiting of blood or ?coffee ground stools?. b.Rectal bleeding 1Tbsp, blood clots or continuous bleeding. c.Severe belly (abdominal) pain. d.A hard distended belly (abdomen) and an inability to pass gas. 4. Please don?t expect to have a normal BM (bowel movement) for 2-3 days after your procedure. 5. If there are questions regarding the findings of your procedure, please contact your doctor 6. If you are unable to contact your doctor with a problem, contact the hospital at [phone]. 7. Continue all your regular medications unless directed otherwise. I understand the above instructions and have no questions. Signature of Patient or Adult Escort Name of Responsible Adult Escort Signature of Nurse Date/Time DIVERTICULAR DISEASE OVERVIEW???A diverticulum is a pouch-like structure that can form through points of weakness in the muscular wall of the colon (ie, at points where blood vessels pass through the wall). Diverticulosis affects men and women equally. The risk of diverticular disease increases with age. It occurs throughout the world but is seen more commonly in developed countries. WHAT IS DIVERTICULAR DISEASE? Diverticulosis???Diverticulosis merely describes the presence of diverticula. Diverticulosis is often found during a test done for other reasons, such as flexible sigmoidoscopy, colonoscopy, or barium enema. Most people with diverticulosis have no symptoms and will remain symptom free for the rest of their lives. A person with diverticulosis may have diverticulitis, or diverticular bleeding. Diverticulitis???Inflammation of a diverticulum (diverticulitis) occurs when there is thinning and breakdown of the diverticular wall. This may be caused by increased pressure within the colon or by hardened particles of stool, which can become lodged within the diverticulum. The symptoms of diverticulitis depend upon the degree of inflammation present. The most common symptom is pain in the left lower abdomen. Other symptoms can include nausea and vomiting, constipation, diarrhea, and urinary symptoms such as pain or burning when urinating or the frequent need to urinate. Diverticulitis is divided into simple and complicated forms. ?Simple diverticulitis, which accounts for 75 percent of cases, is not associated with complications and typically responds to medical treatment without surgery. ?Complicated diverticulitis occurs in 25 percent of cases and usually requires surgery. Complications associated with diverticulitis can include the following: ?Abscess ? a localized collection of pus ?Fistula ? an abnormal tract between two areas that are not normally connected (eg, bowel and bladder) ?Obstruction ? a blockage of the colon ?Peritonitis ? infection involving the space around the abdominal organ ?Sepsis ? overwhelming body-wide infection that can lead to failure of multiple organs Diverticular bleeding???Diverticular bleeding occurs when a small artery located within a diverticulum is eroded and bleeds into the colon. Diverticular bleeding usually causes painless bleeding from the rectum. In approximately 50 percent of cases, the person will see maroon or bright red blood with bowel movements. Is bleeding with a bowel movement normal?It is not normal to see blood in a bowel movement; this can be a sign of several conditions, most of which are not serious (eg, hemorrhoids) but some of which are serious and require immediate treatment. Anyone who sees blood after a bowel movement should consult with their healthcare provider to determine if further testing or evaluation is needed. DIVERTICULOSIS AND DIVERTICULITIS DIAGNOSIS???Diverticulosis is often found during tests performed for other reasons. ?Barium?enema ? This is an x-ray study that uses barium in an enema to view the outline of the lower intestinal tract. This is an older test and has been largely replaced by computed tomography (CT) scan. ?Flexible sigmoidoscopy ? This is an examination of the inside of the sigmoid colon with a thin, flexible tube that contains a camera. ?Colonoscopy ? This is an examination of the inside of the entire colon. ?CT scan ? A CT scan is often used to diagnose diverticulitis and its complications. If diverticulitis (not just diverticulosis) is suspected, the above three tests should not be used because of the risk of perforation. TREATMENT Diverticulosis???People with diverticulosis who do not have symptoms do not require treatment. However, most clinicians recommend increasing fiber in the diet, which can help to bulk the stools and possibly prevent the development of new diverticula, diverticulitis, or diverticular bleeding. Fiber is not proven to prevent these conditions in all patients but may help to control recurrent episodes in some. Increase fiber???Fruits and vegetables are a good source of fiber.? Fiber content of packaged foods can be calculated by reading the nutrition label. Seeds and nuts???Patients with diverticular disease have historically been advised to avoid whole pieces of fiber (such as seeds, corn, and nuts) because of concern that these foods could cause an episode of diverticulitis. However, this belief is completely unproven. We do not suggest that patients with diverticulosis avoid seeds, corn, or nuts. Diverticulitis???Treatment of diverticulitis depends upon how severe your symptoms are. Home treatment???If you have mild symptoms of diverticulitis (mild abdominal pain, usually left lower abdomen), you can be treated at home with a clear liquid diet and oral antibiotics. However, if you develop one or more of the following signs or symptoms, you should seek immediate medical attention: ?Temperature >100.1?F (38?C) ?Worsening or severe abdominal pain ?An inability to tolerate fluids Hospital treatment???If you have moderate to severe symptoms, you may be hospitalized for treatment. During this time, you are not allowed to eat or drink; antibiotics and fluids are given into a vein. If you develop an abscess of the colon, you may require drainage of the abscess (usually performed by placing a drainage tube across the abdominal wall) or by surgically opening the affected area. Surgery???If you develop a generalized infection in the abdomen (peritonitis), you will usually require an emergency operation. A two-part operation may be necessary in some cases. ?The first operation involves removal of the diseased colon and creation of a colostomy. A colostomy is an opening between the colon and the skin, where a bag is attached to collect waste from the intestine. The lower end of the colon is temporarily sewed closed to allow it to heal. ?Approximately three to six months later, a second operation is performed to reconnect the two parts of the colon and close the opening in the skin. You are then able to empty your bowels through the rectum. Sometimes patients require up to a year to recover from the first operation, depending on how sick they were. In non-emergency situations, the diseased area of the colon can be removed and the two ends of the colon can be reconnected in one operation, without the need for a colostomy. Surgery versus medical therapy???An operation to remove the diseased area of the colon may be necessary if you do not improve with medical therapy. After an episode of uncomplicated diverticulitis, elective surgery is generally not required as the risk of another attack or requiring emergency surgery is low. However, patients with persistent symptoms attributable to diverticulitis, a history of complicated diverticulitis, or a compromised immune system should be evaluated for possible surgery to prevent another attack. In such patients, another attack has been associated with a higher risk of complications or . Of course, the decision will also depend in part upon your other medical conditions and ability to undergo surgery. In many cases, an elective operation can be performed laparoscopically, using small incisions, rather than the typical vertical (up and down) abdominal in cision. Laparoscopic surgery usually allows you to recover more quickly and shortens the hospital stay. After diverticulitis resolves???After an episode of diverticulitis resolves, if you have not had a recent colonoscopy, the entire length of the colon should be evaluated to determine the extent of disease and to rule out the presence of abnormal lesions such as polyps or cancer. Recommended tests include colonoscopy, barium enema and sigmoidoscopy, or CT colonography. Diverticular bleeding???Most cases of diverticular bleeding resolve on their own. However, some people will need further testing or treatment to stop bleeding, which may include a colonoscopy, angiography (a treatment that blocks off the bleeding artery), bleeding scan, or surgery. DIVERTICULAR DISEASE PROGNOSIS Diverticulosis???Over time, diverticulosis may cause no problems or it may cause episodes of bleeding and/or diverticulitis. Approximately 15 to 25 percent of people with diverticulosis will develop diverticulitis, while 5 to 15 percent will develop diverticular bleeding. Diverticulitis???Approximately 85 percent of people with uncomplicated diverticulitis will respond to medical treatment, while approximately 15 percent of patients will need an operation. After successful treatment for a first attack of diverticulitis, one-third of patients will remain asymptomatic, one- third will have episodic cramps without diverticulitis, and one-third will go on to have a second attack of diverticulitis. The prognosis tends to remain similar following a second attack of diverticulitis. Only 10 percent of people remain symptom-free after a second attack. Subsequent attacks tend to be of similar severity, not increasing in severity as previously believed. High Fiber Diet What is Dietary Fiber? All fiber comes from plants, bushes, olive or trees.? Of course, the ones that we eat provide us with fruits, vegetables and grains.? There are many different types of fiber but the three that are most important to the health of the body are: Insoluble Fiber This fiber does not dissolve in water, nor is it fermented by the bacteria residing in the colon.? Rather, it retains water and in so doing, helps to promote a larger, bulkier and more regular bowel activity.? This, in turn, may be important in preventing disorder such as diverticulosis and hemorrhoids, and in sweeping out certain toxins and cancer causing carcinogens.? Sources of insoluble fiber are: ? whole grain wheat and other whole grains ? corn bran, including popcorn, unflavored and unsweetened ? nuts and seeds ? potatoes and the skins from most fruits from trees such as apples, bananas and avocados ? many green vegetables such as green beans, zucchini, celery and cauliflower ? some fruit plants such as tomatoes and kiwi Soluble Fiber These fibers are fermented or used by the colon bacteria as a food source or nourishment.? When these good bacteria grow and thrive, many health benefits occur in both the colon and the body.? Soluble fiber is present in some degree in most edible plant foods, but the ones with the most soluble fiber include: ? legumes such as peas and most beans, including soybeans ? oats, rye and barley ? many fruits such as berries, plums, apples bananas and pears ? certain vegetables such as broccoli and carrots ? most root vegetables ? psyllium husk supplement products Benefits of a High Fiber Diet The health benefits of a high fiber diet, consumed on a regular basis and reaching recommended amounts (below), are now fairly well-defined. There are some additional benefits in the early research stage with the prebiotic soluble fibers. What is now known regarding a high fiber diet include: Bowel Regularity A high fiber diet promotes regularity with a softer, bulkier and regular stool pattern. This decreases the chance of hemorrhoids, diverticulosis and perhaps colon cancer. Cholesterol and Reduced Triglycerides The soluble fibers are the ones that will reduce cholesterol levels when used on a regular basis. Psyllium husk and prebiotic soluble fiber will also reduce cholesterol. They may also reduce the incidence of coronary heart disease. Oats, flax seeds and legumes or beans are the recommended fibers. Colon Polyps and Cancer It is still not certain if a high fiber diet helps prevent colon cancer. Considerable research suggests that this may occur. Certainly it makes sense to increase regularity and so speed the movement of cancer causing carcinogens through the bowel. In addition, reducing a heavy meat diet reduces the bile flow from the liver in a favorable way. This, too, reduces the amount of carcinogens that reach and are manufactured in the colon. Finally, a high fiber diet, including prebiotic soluble fiber, increases the integrity and health of the wall of the colon. The risk of cancer may be reduced. Colon Wall Integrity A high fiber diet changes the bacterial makeup of the colon toward a more favorable balance. For instance, it is known that those people with obesity, diabetes type 2 and inflammatory bowel disease have a predominance of bad bacteria in the colon. This, in turn, may render the bowel wall weak and allow bacteria and, indeed, even toxins to seep through. A high fiber diet with a modest reduction in animal and meat products may return the bacterial makeup to a more positive balance. This, in particular, has been seen when the soluble fiber prebiotics are added to the diet. Blood Sugar Soluble fiber such as in legumes (beans), oats and in prebiotic fibers slows the absorption of blood sugar and so helps regulate the sugar in the blood. Insoluble fiber on a regular basis is associated with reduced risk of type 2 oracio betes. Weight Loss High fiber diets are more filling and give a sense of fullness sooner than an animal and meat based diet does. In addition, the soluble prebiotic fibers have been shown to turn off the hunger hormones produced in the wall of the gut and to increase the hormones that give a sense of fullness. Those hormones are made in the wall of the gut. New medical research has shown that the bacterial makeup in the colon in overweight people is abnormal to the extent that they manufacture and absorb almost twice the number of calories through the colon wall as do normals. Prebiotic fibers (below) will help change this hormonal balancein a favorable way. Bacteria and the Function of the Colon The colon finishes the digestive process. Hopefully, the waste products move through in a nice regular manner. Insoluble fibers help this process by retaining water and so producing a bulkier, softer stool, which is easy to pass. The additional role of the colon is to provide a home for an enormous number of micro-organisms, mostly bacteria. Recent research has shown that there are over 1,000 species of bacteria with a total bacterial count ten times the number of cells in the body. These bacteria play a major role in keeping the colon wall itself healthy. In addition, these good bacteria produce a very strong immune system for the body. They significantly increase calcium absorption and bone density. They provide other documented benefits. It is the soluble fibers in the diet that are so effective in stimulating the growth of good colon bacteria. How Much is Enough? The amount of fiber in food is measured in grams.? National nutritional authorities recommend the following amounts of dietary fiber daily. Under Age 50? Over Age 50 Men? 38 grams? 30 grams Women??? 25 grams? 21 grams For a week or so, it is best to tally the amount of fiber you are consuming.? Boxed and packaged foods will have the amount of fiber per serving on the nutrition label. Which Fibers and Which Foods are Best? As noted, healthy fiber is only found in plants. The three major categories are whole grains, fruits and vegetables. Whole Grains Wheat, oats, barley, wild or brown rice, amaranth, buckwheat, bulgur, corn, millet, quinoa, rye, sorghum, teff and triticals. By far, wheat, oats and wild or brown rice are most common. Always buy whole grain products. White bread, baked goods and rolls almost always are made from wheat flour. Wheat flour is white because most of the fiber, vitamins and other nutrients have been removed. Try not buy enriched grains. What this means is that simple white flour has had vitamins added to it by the chemical process operator. The word, enriched, implies a good and healthy product. On the contrary, enriched means that most of the fiber has been removed and a few vitamins added. Fruits Fruits come from trees such as apple and pear or from bushes or olive. You should eat a wide variety of fruits, preferably with every meal. In many cases, the skin of a fruit such as apple will contain much of the insoluble fiber while the pulp contains most of the soluble fiber. To the extent possible, buy organic fruits as these will have little or no pesticides. Always wash fruit. Vegetables Eat a wide variety of vegetables. They should be a mainstay of lunch and dinners. Frozen vegetables retain as much nutrition and fiber as fresh vegetables. As with fruit, try to buy organic to reduce any residual pesticide ingestion. Wash fresh vegetables thoroughly. Cruciferous vegetables such as broccoli, [place] sprouts and cauliflower contain certain chemicals such as sulforaphane. This substance has very strong anti-cancer properties and should be eaten frequently. Legumes, Beans, Peas and Soybeans These vegetables have plenty of soluble fiber and should be part of a varied vegetable intake. Beans, in particular, contain a certain type of fiber that may lead to harmless gas or bloating. Nuts and Seeds These are rich sources of fiber and are a good substitute for sweets such as candies and baked sweet goods. While nuts and seeds are rich in fiber, they also contain vegetable fat and so can and do add calories. Read the Labels As noted, fresh and frozen foods are usually better.? They have good nutrition and few, if any, chemicals added to them.? When buying packaged foods and, in particular grains, look for three things: ? The first word on the label should be whole, such as whole wheat or whole grain. ? Check out the calories and the amount of fiber in a serving. ? How many and what other additives or chemicals are added.? Fewer is always better.? Do you know what each additive does?? Some are added not for the benefit of the salvationist but rather for manufacturers.? These could and do include sugar, artificial flavor, chemicals to prevent oxidation and spoilage, emulsifiers to blend the product.? You have to be a annealing furnace operator. Fiber Facts, Nuggets and Pearls ? For breakfast you can easily get the day started well by using a high fiber, whole grain cereal.? Check the labels.? Add fruit such as blueberries and bananas.? If you are an egg eater, use whole wheat or grain toast.? Adding wheat germ gives you a good fiber kick. ? Always use whole grain or wheat with rolls and sandwiches.? Does your fast food store not have them?? Perhaps you look elsewhere.? Eating an occasional black chadwick or veggie burger provides variety. ? Snacks should consist of fruit and/or nuts.? While nuts are loaded with fiber, they are an energy rich food, meaning they have a lot of calories in a small packet. ? Fruit juices should contain pulp.? Clear juices such as clear orange, pear or apple juice contain little fiber and have a lot of fructose.? Prune juice is usually high in fiber. ? Homemade soups ? adding fresh or frozen vegetables to a chicken or vegetable stock is a good way to start homemade soup. ? Salads ? adding cooked and then chilled vegetables provide great flavoring to almost any salad.? Remember, a zhong salad has lots of cooked corn in it.? Small slices of apples or oranges and nuts such as chopped walnuts or sliced almonds always adds taste, variety and fiber to almost any salad. ? Fruit ? Try to eat fruit of some type with almost every meal. ? Rethink how you place the various foods on your dinner plate.? Reducing the portions of the meat or animal food portion to the side with equal or more portions of vegetables, legumes and fruits portion always allows for more fiber.? There was never anything magic about making the meat or animal food portion the main part of the dinner plate.? Eating from smaller plates can, over time, trick your mind and long term care administrator habit of using a dinner plate.? Again, there is nothing magic in an 11, 12, or 13 inch dinner plate. Fiber Supplements There are a variety of fiber supplements available on the food or pharmacy shelves. Psyllium This soluble plant fiber has been used in [place] for over 2,000 years. It is a soluble fiber with mucilage in it. This acts to retain a lot of water and also is fermented by colon bacteria. When 7 grams a day are used, it does lower cholesterol. Metamucil in various forms is psyllium. Methyl Cellulose All the cellulose products come from finely ground wood chips which are then treated in a variety of ways such as boiling in acids. Methyl cellulose is an insoluble fiber which does dissolve in water. It is also an emulsifier, meaning it blends oils and water. Citrucel is methyl cellulose (MC). MC may not be appropriate for Crohn?s disease or ulcerative colitis as several medical studies have shown that certain emulsifiers dissolve the mucous lining of the colon in animals prone to Crohn?s disease. This then allows bacteria to invade the underlying tissue. Fiber and Gas Everyone has intestinal gas and that is a good thing.? It means that bacteria, hopefully the good ones, are thriving.? The normal amount of flatus passed each day depends on sex and what is eaten.? The normal number of flatus is 10-20 times a day.? When the bacteria that make intestinal gases are growing, it also means that other good bacteria are using the same fibers to grow and produce multiple health benefits, including the production of healthy short-chain fatty acids.? These substances are produced quietly in the colon and produce many health-related outcomes. Soluble fiber should always be used in a gradual manner.? If too much is consumed at any one time, then excess, but harmless, intestinal gas can occur.? People with irritable bowel syndrome are particularly prone to bloating and mild cramping.? In this instance, soluble fiber in the diet or supplement should be used in small doses and increased gradually. Finally, prebiotic fibers tend to cause the production of short-chain fatty acids which acidify the colon.? This, in turn, reduces or stops the growth of bacteria that make the smelly hydrogen sulfide gases that produce noxious flatus.? People who consume many vegetables with prebiotics or take a prebiotic fiber supplement often have non-odoriferous flatus. Fiber and Irritable Bowel Syndrome Irritable bowel syndrome (IBS) is one of the most common disorders of the lower digestive tract.? The symptoms of IBS can be quite varied.? They can be a mix of several symptoms such as constipation, diarrhea, crampy abdominal discomfort, bloating and gas.? An attack of IBS can be triggered by emotional tension and anxiety, poor dietary habits and certain medications.? It is now known that infections in the intestine can lead to long-term IBS symptoms.? Increased amounts of fiber in the diet can help relieve the symptoms of irritable bowel syndrome by producing soft, bulky stools.? This helps to normalize the time it takes for the stool to pass through the colon.? Recent medical research with newer techniques has shown some surprising and dramatic findings for IBS patients.? Specifically, there is a very significant and abnormal shift of bacteria from those that provide health benefits to those bad bacteria that we really do not want in the gut.? The technical name for this bad group of bacteria is called Firmicutes.? Along with this abnormal bacterial collection, there is a smoldering low-grade inflammation in the gut wall that may contribute to symptoms.? The goal for IBS patients should be to gradually increase the soluble dietary fibers in the diet so as to promote the growth of good bacteria and so suppress the bad ones along with the associated inflammation. IBS patients need to be careful of the amount of soluble fiber they consume.? The reason for this is that, while the good colon bacteria thrive on these fibers and produce health benefits, other gas-forming bacteria may generate excessive but harmless gas and subsequent bloating.? Thus, soluble plant fibers or a dietary prebiotic supplement should be taken in small initial doses and then gradually increased to tolerance. Fiber and Colon Polyps/Cancer Colon cancer is a major health problem. This disease is most common in Western cultures. It is not seen very often in rural cultures where the diet is mostly plant based. Usually, colon cancer starts out as a colon polyp, a benign mushroom-shaped growth. In time it grows, and in some people it becomes cancerous. Colon cancer is usually always curable if polyps are removed when found or if surgery is performed at an early stage. It is now known that people can inherit the risk of developing colon cancer, but diet is important, too. As noted, there is a very low rate of colon cancer in residents of countries where grains are unprocessed and retain their fiber. It seems that in the [place] world, cancer-containing agents (carcinogens) remain in contact with the colon wall for a longer time and in higher concentrations. So, a large bulky stool may act to dilute these carcinogens by moving them through the bowel more quickly. Less carcinogenic exposure to the colon may mean fewer colon polyps and less cancer. A very current review of the entire world?s literature on the effect of fiber on colon polyps and cancer prevention has shown rather clearly that for every 10 grams of fiber added to the diet, there is a 10% reduction in incidence of colon cancer. So the recommended 30 gram fiber diet would result in a 30% less chance of getting these tumors. There are also substances produced in the colon by the good bacteria that seem to retard certain pre-cancer factors from developing. They are called short- chain fatty acids (SCFA). See above for description of SCFAs. A high fiber diet increases these substances. So, the combination of dietary fiber and the production of short-chain fatty acids have a clear health benefit. Fiber and Diverticulosis Prolonged, vigorous contraction of the colon over a long period of time may result in diverticulosis.? This increased pressure causes small and, eventually, larger ballooning pockets to form.? These pockets by themselves cause no problem.? However, sometimes they become infected (diverticulitis) or even break open (perforate) causing infection or inflammation within the abdomen (peritonitis).? A high fiber diet increases the bulk in the stool and thereby reduces the pressure within the colon.? By so doing, the formation of pockets may be reduced or possibly even stopped. In the past, many physicians were fearful that seeds as in tomatoes, nuts or berries were harmful and could get inside these pockets and rattle around, causing damage. We now know that this has never been the case and that these foods contain lots of fiber and are actually beneficial for diverticulosis patients. Certain bulking agents such as psyllium are traditional types of bulk producing supplements.? Psyllium is a soluble fiber.? Combining it with insoluble fiber as in wheat bran or corn bran (no gluten) can enhance this bulking effect even more.? A product containing a prebiotic, psyllium and wheat bran is probably a very good combination for bowel regularity. Prebiotin Regularity/Diverticulosis is one such product. Starting a Fiber Supplement ?When consumed at recommended levels,?dietary fiber ?is widely recognized to have health benefits, including relief of?constipation . Adult women 50 and younger should consume at least 25 grams of fiber a day. Women 51 and older should have at least 21 grams a day. Adult men need at least 38 grams of fiber a day if they are younger than 50 and at least 30 grams of fiber a day if they are 51 and older. Ninety percent of the [place] population consumes far below those recommendations, averaging only 15 grams of daily fiber. Fiber-rich foods include fruits, vegetables, whole grains and legumes. Many cereals, such as bran flakes, are good sources of fiber. Although fiber supplements can fill the daily fiber gap, they usually have only one type of fiber, rather than a variety of fibers and micronutrients, and they may not provide all the health benefits associated with fiber in food. Therefore, boost your fiber intake in your diet first by eating a wide variety of high-fiber foods. If you still can?t get enough fiber to meet the daily recommendation, consider using a supplement. Many fiber supplements can be used regularly long term care administrator. Fiber is classified as soluble or insoluble. Soluble fibers are more fermentable and may cause gas. Insoluble fibers move through the digestive system largely intact, and that can increase stool bulk. Most fiber supplements are exclusively soluble or insoluble fiber. For example, FiberCon (calcium polycarbophil) and Benefiber (wheat dextrin) are mainly soluble fiber. They tend to cause more bloating and flatulence. Citrucel (methylcellulose) is mainly insoluble fibers that are nonfermentable, so it?s l ess likely to contribute to bloating and gas. Psyllium husk (Metamucil and Konsyl) is rich in both soluble and insoluble fiber. Generally, fiber supplements with mainly insoluble fiber may be a better option for constipation. Before taking a fiber supplement, ask your health care provider or pharmacist to review your medications. Fiber supplements can decrease the absorption of certain medications, including drugs that treat thyroid disorders,?depression ,?diabetes ,?high cholesterol ,?seizures ?and various heart ailments. Even common medications such as aspirin, ibuprofen and penicillin can be affected by an increase in fiber. You may take your medications one hour before or two hours after eating fiber to minimize the interaction. Some fiber supplements may not be appropriate for people with certain medical conditions. For example, if you have celiac disease, you may need to stay away from fiber products derived from wheat. If you have diabetes, you may need to use a flavorless formula to avoid extra sugar. Consult your health care provider for guidance about the appropriate fiber supplement. Go slow as you begin fiber therapy. Fiber supplements may cause abdominal bloating, cramping and flatulence, especially if you start at a high dose. Begin with a low dose, gradually increasing the amount of fiber. Don?t add more than 50 grams of fiber in a supplement per day, as that may affect how your body absorbs nutrients. Your health care provider can help determine what?s right for you. Drinking plenty of water and exercising regularly can help ease constipation, too. If increasing fiber doesn?t improve your symptoms, see your health care provider. Constipation can be a symptom of various underlying medical disorders, such as pelvic floor muscle dysfunction, slow gastrointestinal motility, anatomical abnormalities or endocrine dysfunction that may require different treatment.? Activity:: See above Diet:: See above Discharge Orders Discharge Orders: Discharge Order (Routine); Ordered 09/01/23 Ordered By: Lizett Plata DS: Diagnosis Discharge Diagnosis (1) Screening for malignant neoplasm of colon: Status: Acute Asessment and Plan: The patient is seen and examined after their colonoscopy.? The patient has been able to pass gas.? They are not having abdominal pain.? They have been able to tolerate liquids and a snack.? They do not have any nausea or vomiting.? They are not having any chest pain or shortness of breath.??? They are not having any rectal bleeding. Their vital signs have been stable-see nursing notes. We discussed findings during their colonoscopy, and any biopsies that were done/polyps that were removed. The patient will be sent a letter with any biopsy results, and when to repeat the colonoscopy.-see discharge instructions. Patient was given explicit instructions to follow-up regarding colonoscopy-refer to discharge instructions.? We reviewed resumption of medications. Patient verbalized understanding and discharged in stable and satisfactory condition- See nursing notes. (2) Diverticular disease: Status: Chronic (3) Hyperlipidemia: Status: Chronic (4) Adenomatous polyps: Status: Acute
[2023-09-01 07:30] VITALS: BP 122/73; PULSE 95; RESP 18; TEMP 36.7; O2SAT 96
[2023-09-01] MEDS: Lactated Ringers 1,000 ML 80 ML IV (07:50)
--- NOTE | 2023-09-01 08:23 | W.ANESPRE ---
General Info Date of Service Date Performed: 09/01/23 Height: 5 ft 4 in Weight: 82.2 kg Body Mass Index (BMI): 31.1 Surgical Procedure: Operation Date: 09/01/23 08:20 Proposed Procedure Side Surgeon p Colonoscopy, possible polypectomy Lizett Plata, DO Meds Allergies and Home Medications Allergies Allergy/AdvReac Type Severity Reaction Status Date / Time terbinafine AdvReac Intermediate EXTREME Verified 09/01/23 07:28 EXHAUSTION topiramate AdvReac Intermediate CONFUSION/D Verified 09/01/23 07:28 EPRESSION Home Medication Medication Instructions Recorded acetaminophen 500 mg tablet 500 mg PO Q6H PRN #30 tabs 07/06/21 (Tylenol Extra Strength) bisacodyl 5 mg tablet,delayed 5 mg PO ONCE Colonoscopy Bowel 08/23/23 release Prep #4 tabs polyethylene glycol 3350 17 238 g PO ONCE #238 grams 08/23/23 gram/dose oral powder Current Visit Medications: Current Medications Generic Name Dose Route Start Last Admin Trade Name Freq PRN Reason Stop Dose Admin Hyoscyamine Sulfate 0.125 mg 09/01/23 02:52 Hyoscyamine 0.125 Mg Sl/Oral/Chew SL 10/01/23 02:51 DIRECTED PRN Ringer's Solution 1,000 mls @ 80 mls/hr 09/01/23 06:00 09/01/23 07:50 IV 09/30/23 23:59 80 mls/hr INFUSION JAYLEN Administration IV Miscellaneous Supplies 1 each 09/01/23 06:00 Iv Access IV 09/30/23 23:59 DIRECTED JAYLEN Ondansetron HCl 4 mg 09/01/23 02:52 Ondansetron 4 Mg/2 Ml Vial IVP 10/01/23 02:51 Q4H PRN PRN Nausea / Vomiting Sodium Chloride 0 ml 09/01/23 06:00 Normal Saline Flush 10 Ml Syr IV 09/30/23 23:59 PRN PRN Sodium Chloride 0 ml 09/01/23 06:00 Normal Saline 10 Ml Vial IJ 09/30/23 23:59 DIRECTED PRN Sterile Water 0 ml 09/01/23 06:00 Water,Injection,Sterile 10 Ml Vial IJ 09/30/23 23:59 DIRECTED PRN PFSH Active Problems Active Problems: Problem Status Onset Code Screening for malignant neoplasm of colon Z12.11 Chest pain R07.9 Stress due to spouse with dementia Z63.79 Carpal tunnel syndrome of right wrist G56.01 Right lateral epicondylitis M77.11 Annual physical exam Z00.00 Diverticular disease 05/31/13 K57.90 Hearing difficulty of left ear 12/17/15 H91.92 Hyperlipidemia E78.5 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 Migraine G43.909 Onychomycosis B35.1 Medical History Medical History Abdominal pain 05/27/13 Abnormal mammogram, unspecified 10/12/032003-left medial breast density at 7 o'clock; 2004-right inferior breast nodularity Annual physical exam (10/05/15) Chronic left shoulder pain 05/06/16 Dermoid cyst of ovary 08/13/13 Ear congestion 12/17/15 left Excessive cerumen in right ear canal 12/08/15 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 hpv neg Iliotibial band syndrome 08/19/14 Neck pain xrays normal Right cervical radiculopathy 10/05/15 Sigmoid diverticulosis Surgical History Surgical History Bilateral salpingectomy with oophorectomy left, secondary to dermoid cyst Colonoscopy - [facility] (07/19/13) SIGMOID DIVERTICULOSIS S/P BSO (bilateral salpingo-oophorectomy) left;secondary to dermoid cyst S/P tonsillectomy and adenoidectomy Tonsillectomy and adenoidectomy Tobacco Smoking/Tobacco Use Status: Never Passive smoking exposure: Yes Second hand exposure: Yes Alcohol Alcohol Intake: current Alcohol intake frequency: a few times a month Alcohol type: wine and hard liquor Substance Use Substance use: Never Substance use type: does not use Vital Signs and Lab Results Vital Signs Most Recent Vital Signs in EMR: Most Recent Vital Signs Temp Pulse Resp BP Pulse Ox 36.7 C 95 H 18 122/73 96 09/01/23 07:30 09/01/23 07:30 09/01/23 07:30 09/01/23 07:30 09/01/23 07:30 Lab Results Blood Type / Crossmatch: No Data to Display Complete Blood Count: No Data to Display Complete Metabolic Panel: No Data to Display Liver Function Panel: No Data to Display Coagulation Panel: No Data to Display Cardiac Panel: No Data to Display Arterial Blood Gas: No Data to Display Venous Blood Gas: No Data to Display Pancreas Panel: No Data to Display Thyroid Panel: No Data to Display Infectious Disease: No Data to Display Blood Cultures: No Data to Display Toxicology Panel: No Data to Display Anesthesia Assessment and Plan Anesthesia History Personal History: No History of Anesthesia Complications Family History: No Family History of Anesthesia Complications Exercise Tolerance Exercise Tolerance: Metabolic Equivalents>4 Pertinent Negatives Pertinent Negatives: No Symptoms of GERD Cardiac & Pulmonary Exam Cardiac Exam: Normal S1/S2 Heart Sounds Pulmonary Exam: Clear Bilateral Breath Sounds Implantable Cardiac Device Does patient have a Pacemaker or an ICD?: No Airway Exam Known Difficult Airway: No Mallampati Class: 2 Mouth Opening: Normal (> 3cm) Thyromental Distance: Greater than 3 cm Neck Range of Motion: Full ROM Neck Circumference: Normal Teeth Condition: Normal Dentition ASA Classification ASA Score: ASA 2 Emergency Case?: No NPO Status NPO Status: NPO Clears >2 hours, Solids >8 hours Anesthesia Plan Resuscitation Status: Full Code Anesthesia Technique: General Anesthesia Airway Planned: Natural Airway Monitors Used: Standard Monitors
[2023-09-01 08:24] VITALS: BMI 31.1
--- NOTE | 2023-09-01 08:46 | BOWEL_PTH ---
PATIENT: Elizabeth Gonzalez LOC: [facility] U#:[id number] AGE/SX: 58/F ROOM: RE09/01/[address]: Lizett Plata : 1965 BED: DIS: 09/01/2023 SPEC #: [id number] RECD: 09/01/23 12:22 STATUS: RUI REQ #: [id number] LAURA: 09/01/23 08:[address]: Lizett Plata DEPT: Surgical Specimen RECD BY: Eileen Solomon ENTERED: 09/01/23 12:23 SP TYPE: Bowel OTHR DR: Christin Jordan MD, DC Tissues: 1 - BIOPSY BOWEL Procedures: GROSS AND MICRO LEVEL 4 Comments: [id number]
[2023-09-01 08:57] VITALS: BP 109/68; PULSE 85; RESP 16; TEMP 37; O2SAT 97
--- NOTE | 2023-09-01 09:07 | W.ANESPOSTOP ---
Postoperative Evaluation Date, Time and Location Date Performed: 09/01/23 Time Performed: 09:08 Patient Location: [facility] Unit Vital Signs Most Recent Imported Vital Signs: Most Recent Vital Signs Temp Pulse Resp BP Pulse Ox 36.7 C 95 H 18 122/73 96 09/01/23 07:30 09/01/23 07:30 09/01/23 07:30 09/01/23 07:30 09/01/23 07:30 Pain Score Most Recent Pain Score: Most Recent Pain Score Pain Level 0 09/01/23 07:30 Assessment Mental Status: Awake (Alert & Oriented to Patient Baseline) Airway and Respiratory Function: Patent airway with normal (patient baseline) respiratory exam Cardiovascular Function: Hemodynamically Stable Hydration Status: Adequately Hydrated Nausea & Vomiting: No Nausea or Vomiting Pain: Pt. Denies Any Pain Peripheral Nerve Block: Patient did not receive a nerve block
[2023-09-01 09:31] VITALS: BP 112/64; PULSE 74; RESP 16; TEMP 36; O2SAT 100
== END 2023-09-01 10:03 | disposition home or self-care (01) ==
PROVIDERS: PCP Family Medicine; Visit Provider Surgery
PROC: 0DJD8ZZ Inspection of Lower Intestinal Tract, Via Natural or Artificial Opening Endoscopic (ICD-10-PCS; CPT 45378; principal; 2023-09-01 08:15)
DX: Z12.11 Encounter for screening for malignant neoplasm of colon (principal); K57.90 Diverticulosis of intestine, part unspecified, without perforation or abscess without bleeding; E78.5 Hyperlipidemia, unspecified; K63.5 Polyp of colon
CPT/HCPCS: 45380; 88305; J2001

== ENCOUNTER 2025-04-09 00:11 | Outpatient (CLI) | payer BC, OTHER, SELFPAY ==
--- NOTE | 2025-04-09 07:30 | DI.MAMMO_ITS ---
Exam(s) MAMMO SCREENING EXAM: MAMMO SCREENING CLINICAL HISTORY: screening,z12.39 TECHNIQUE: Mammograms were interpreted according to the usual protocol including computer analysis w G-cluster CAD system, tomosynthesis and C-view imaging. COMPARISON: 2014 through 2022 FINDINGS: The breasts are composed of scattered fibroglandular densities, Breast Density category B. No suspicious masses or suspicious microcalcifications are seen. No skin thickening or abnormal axillary lymph nodes are seen. There has been no significant change from prior exams. IMPRESSION: BI-RADS Category 1, Negative mammogram Yearly screening mammography is recommended. Breast Density - Category B, scattered fibroglandular densities. Breast density Category C or D implies that the patient has dense breast tissue. Dense breast tissue can make it harder to find cancer on a mammogram. Dense breast tissue is also associated with an incr eased risk of breast cancer. This information about the result of the mammogram report was provided to the patient to raise their awareness. Use this report when you speak with the patient about their risks for breast cancer, which includes their family history. At that time, you may recommend additional screening tests (Ultrasoun d or MRI) as these tests may add significant information. A negative radiographic report should not delay biopsy if a dominant or clinically suspicious mass is present. Up to ten percent of cancers are not identified on mammography. A negative report may reinforce clinical impression. Adenosis and dense breasts may obscure an underlying neoplasm. False positive reports average 6 to 10%. Patient will receive a letter notifying them of these results.
== END 2025-04-09 00:31 ==
LOC: DI 00:11
PROVIDERS: PCP Family Medicine; Visit Provider Family Medicine
DX: Z12.31 Encounter for screening mammogram for malignant neoplasm of breast (principal); R92.323 Mammographic fibroglandular density, bilateral breasts
CPT/HCPCS: 77063; 77067